=== PATIENT | female | born 1965 | race Caucasian/White ===

== ENCOUNTER → 2017-03-29 | Outpatient (CLI) | payer OTHER ==
--- NOTE | 2017-03-29 17:09 | US ---
EXAMINATION TYPE: US thyroid st tissue head/neck DATE OF EXAM: 03/29/2017 COMPARISON: NONE CLINICAL HISTORY: E03.9 HYPOTHYROIDISM. Hypothyroid, pt on thyroid meds x 1 year GLAND SIZE: Right Lobe: 3.5 x 1.6 x 1.3 cm Overall Parenchyma: heterogenous Left Lobe: 3.7 x 1.5 x 1.1 cm Overall Parenchyma: heterogeneous Isthmus Thickness: 0.4 cm NODULES RIGHT: # of nodules measured on right: 0 LEFT: # of nodules measured on left: 0 ISTHMUS: # of nodules measured in the isthmus: 0 Bilateral neck scanned, no evidence of lymphadenopathy. Heterogeneous gland bilaterally IMPRESSION: No focal thyroid abnormality. Normal sized thyroid gland.
--- NOTE | 2017-04-22 10:07 | MM ---
Reason for exam: screening (asymptomatic). Last mammogram was performed 2 years and 6 months ago. History: Patient is nulliparous. Physical Findings: A clinical breast exam by your physician is recommended on an annual basis and results should be correlated with mammographic findings. MG Screening Mammo w CAD Bilateral CC and MLO view(s) were taken. Prior study comparison: September 14, 2014, mammogram, performed at [facility]. May 14, 2012, mammogram, performed at [facility]. September 28, 2009, mammogram, performed at [facility]. The breast tissue is extremely dense which could obscure a lesion on mammography. Finding: There are indeterminate calcifications in the right breast. ASSESSMENT: Incomplete: need additional imaging evaluation, BI-RAD 0 RECOMMENDATION: Special view mammogram of the right breast. [facility] will attempt to contact patient to return for supplemental views.
== END | disposition home or self-care (01) ==
LOC: RADUSWWP 15:56
PROVIDERS: ATTEND Family Medicine
DX: Z12.31 Encounter for screening mammogram for malignant neoplasm of breast (principal); E03.9 Hypothyroidism, unspecified
CPT/HCPCS: 76536; G0202

== ENCOUNTER → 2017-04-30 | Outpatient (CLI) | payer OTHER ==
--- NOTE | 2017-05-01 07:23 | MM ---
Reason for exam: additional evaluation requested from abnormal screening. Last mammogram was performed 1 month ago. History: Patient is nulliparous. Physical Findings: Nurse did not find any significant physical abnormalities on exam. MG Work Up Mamm w CAD RT CC, MLO, LM, CC with magnification, and LM with magnification view(s) were taken of the right breast. Prior study comparison: March 29, 2017, bilateral MG screening mammo w CAD. September 14, 2014, mammogram, performed at [facility]. May 14, 2012 , mammogram, performed at [facility]. Diffuse lateral right breast calcifications have increased. Most of these layer consistent with benign milk of calcium. Posterior upper outer calcifications are stable. Other calcifications can be reassessed in 6 months. These results were verbally communicated with the patient and result sheet given to the patient on 04/30/17. ASSESSMENT: Probably benign, BI-RAD 3 RECOMMENDATION: Follow-up diagnostic mammogram of the right breast in 6 months. Clinical management of reported nipple discharge. Suspicious discharge that may warrant further evaluation is clear or bloody spontaneous discharge that localizes to a single pore on the nipple. MTDD
== END | disposition home or self-care (01) ==
LOC: RADMAMWWP 14:52
PROVIDERS: ATTEND Family Medicine
DX: R92.8 Other abnormal and inconclusive findings on diagnostic imaging of breast (principal)

== ENCOUNTER 2017-07-17 08:26 | Day surgery (SDC) | payer OTHER ==
[2017-07-15 11:55] VITALS: BMI 27.4
[~2017-07-17 08:26] MED LIST: LACTATED RINGERS 1,000 ML IV SCH
[2017-07-17 10:44] VITALS: RESP 16; TEMP 97.3
[2017-07-17] MEDS ORDERED: LIDOCAINE 1% 20 ML VIAL (10MG/ML) FOR IV START INTRADERMA ONE (10:50)
[2017-07-17] MEDS ORDERED: FAMOTIDINE 20 MG/2 ML VIAL IV ONE (10:51)
[2017-07-17] MEDS ORDERED: LIDOCAINE 1% INJ 10MG/ML (20 ML MDV) ONE (11:03)
[2017-07-17] MEDS ORDERED: MIDAZOLAM 2 MG/2 ML VIAL ONE (11:03)
[2017-07-17] MEDS ORDERED: fentaNYL (PF) 50 MCG/ML 2 ML AMP ONE (11:03)
[2017-07-17] MEDS ORDERED: PROPOFOL 10 MG/ML 20 ML VIAL IV ONE (11:03)
--- NOTE | 2017-07-17 11:35 | P.PCN ---
Date of Procedure: 07/17/17 Procedure(s) Performed: BRIEF HISTORY: Patient is a 52-year-old pleasant white female, scheduled for an elective colonoscopy as a part of evaluation of prior history of colon polyps. Her last colonoscopy was in 3 years ago in [facility] and was noted to have a tubular adenoma, he can to the patient. PROCEDURE PERFORMED: Colonoscopy. PREOPERATIVE DIAGNOSIS: History of colon polyps. IV sedation per Anesthesia. PROCEDURE: After informed consent was obtained, the patient, was brought into the endoscopy unit. IV sedation was administered by Anesthesia under continuous monitoring. Digital rectal examination was normal. Initially the Olympus CF- 160 flexible video colonoscope was then inserted in the rectum, gradually advanced into the cecum without any difficulty. Careful examination was performed as the scope was gradually being withdrawn. Ileocecal valve and the appendiceal orifice were visualized and appeared normal. Prep was fair but Irrigation was performed using irrigation system. Mucosa of the cecum, ascending colon, transverse colon, descending colon, sigmoid colon, and rectum appeared normal. Retroflexion was performed in the rectum and small internal hemorrhoids were seen. The patient tolerated the procedure well. IMPRESSION: Normal-appearing colon from rectum to cecum with no evidence of colorectal neoplasia . Small internal hemorrhoids. RECOMMENDATIONS: Findings of this examination were discussed with the patient as well as a family. She was advised to have a repeat surveillance colonoscopy in 5 years because of the prior history of colon polyps.
[2017-07-17 12:13] VITALS: BP 115/66; PULSE 44
== END 2017-07-17 12:40 | disposition home or self-care (01) ==
LOC: ORWHC2ENDO 08:26
PROVIDERS: ATTEND Internal Medicine Gastroenterology
DX: Z12.11 Encounter for screening for malignant neoplasm of colon (principal); Z86.010 Personal history of colon polyps; K64.8 Other hemorrhoids; E07.9 Disorder of thyroid, unspecified; K58.9 Irritable bowel syndrome, unspecified; Z79.899 Other long term (current) drug therapy
CPT/HCPCS: 81025; J2250; J2001; J3010; J2704; G0105

== ENCOUNTER → 2017-08-30 | Outpatient (CLI) | payer OTHER | END | disposition home or self-care (01) | LOC: LABWHC1 15:43 | PROVIDERS: ATTEND Nurse Practitioner | DX: F31.32 Bipolar disorder, current episode depressed, moderate (principal) | CPT/HCPCS: 36415; 80178 ==

== ENCOUNTER → 2018-05-01 | Outpatient (CLI) | payer OTHER ==
--- NOTE | 2018-05-02 08:09 | MM ---
Reason for exam: additional evaluation requested from prior study. Last mammogram was performed 1 year ago. History: Patient is nulliparous. Physical Findings: Nurse Summary: 1cm nodule in the right breast at 4-5 o'clock behind nipple (nurse mj). MG Diagnostic Mammo w CAD KENDRA Bilateral CC and MLO view(s) were taken. Prior study comparison: April 30, 2017, right breast MG work up mamm w CAD RT. March 29, 2017, bilateral MG screening mammo w CAD. The breast tissue is heterogeneously dense. This may lower the sensitivity of mammography. Palpable marker inferior anterior right breast. Grouped calcifications middle depth right breast lateral to the retroareolar plane unchanged from 2017. Additional 1 year follow up recommended. These results were verbally communicated with the patient and result sheet given to the patient on 05/01/18. ASSESSMENT: Incomplete: need additional imaging evaluation, BI-RAD 0 RECOMMENDATION: Ultrasound of the right breast. (palpable)
--- NOTE | 2018-05-02 08:11 | USB ---
Reason for exam: additional evaluation requested from abnormal screening. History: Patient is nulliparous. US Breast Limited RT Right limited breast ultrasound including focal area of concern, retroareolar and axilla demonstrates no cystic or solid lesion seen. Scanned 3-6 o'clock and subareolar region and axilla. These results were verbally communicated with the patient and result sheet given to the patient on 05/01/18. ASSESSMENT: Probably benign, BI-RAD 3 RECOMMENDATION: Follow-up diagnostic mammogram of both breasts in 1 year. (2 year follow up of right breast) Manage on a clinical basis with regard to any suspicious palpable abnormality.
== END | disposition home or self-care (01) ==
LOC: RADMAMWWP 15:49
PROVIDERS: ATTEND Family Medicine
DX: R92.8 Other abnormal and inconclusive findings on diagnostic imaging of breast (principal)
CPT/HCPCS: 77066